=== PATIENT | female | born 2000 | race Hispanic/Latino ===

== ENCOUNTER 2022-08-15 07:22 | Inpatient (IN) | payer MEDICAID, OTHER, SELFPAY ==
[2022-08-15 07:36] VITALS: BMI 30.2
[2022-08-15] MEDS ORDERED: Bupivacaine 0.25% HCL 30 ML VIAL ONE (08:00)
[2022-08-15] MEDS ORDERED: hydrALAZINE 20 MG/ML VIAL SLOW IVP PRN ×2 (09:10→09:11)
[2022-08-15] MEDS ORDERED: Misoprostol 200 MCG TAB PR PRN (09:11)
[2022-08-15] MEDS ORDERED: Ondansetron PF 4 MG/2 ML Vial IVP PRN (09:11)
[2022-08-15] MEDS ORDERED: Butorphanol Tartrate 1 MG/ML VIAL SLOW IVP PRN (09:11)
[2022-08-15] MEDS ORDERED: Tranexamic Acid 1,000 MG/10 ML VIAL IVP PRN (09:11)
[2022-08-15] MEDS ORDERED: Promethazine HCl 25 MG/ML VIAL IM PRN (09:11)
[2022-08-15] MEDS ORDERED: Lidocaine 1% (PF) 30 ML VIAL SC PRN (09:11)
[2022-08-15] MEDS ORDERED: Ibuprofen 800 MG TAB PO PRN (09:11)
[2022-08-15] MEDS ORDERED: Carboprost 250 MCG/ML AMP IM PRN (09:11)
[2022-08-15] MEDS ORDERED: Diphenoxylate HCl/Atropine Tablet PO PRN (09:11)
[2022-08-15] MEDS ORDERED: NS w/ Oxytocin 30 units 500 ML IV SCH ×2 (09:15)
[2022-08-15] MEDS: Lactated Ringer's 1,000 ML IV SCH ×3 (10:15→17:12)
[2022-08-15 10:42] LABS: #Eosinphils 0.1 10x3/uL (0.0-0.5); #Monocytes 0.6 10x3/uL (0.0-1.1); #Neutrophils 5.8 10x3/uL (1.5-8.4); %Basophils 0.4 % (0.0-2.0); %Eosinophils 0.7 % (0.0-6.0); %Lymphocytes 20.5 % (18.0-47.0); %Monocytes 7.1 % (0.0-10.0); %Neutrophils 71.1 % (40.0-75.0); Hemoglobin 12.7 g/dL (12.0-15.5); Mean Corpuscular Hemoglobin 31.7 pg (27.0-33.0); Mean Platelet Volume 10.9 fl (7.4-10.4); Platelet Count 230 10x3/uL (150-450); RBC Distribution Width 13.3 % (11.5-14.5); Red Blood Cell (RBC) Count 4.01 10x6/uL (3.90-5.03); White Blood Cell (WBC) Count 8.2 10x3/uL (3.5-10.5)
[2022-08-15 11:09] LABS: ALT (SGPT) 12 U/L (8-55); AST (SGOT) 18 U/L (5-34); Albumin 3.3 g/dL (3.5-5.0); Alkaline Phosphatase 249 U/L (40-110); Anion Gap 14 mmol/L (10-20); BUN (Urea Nitrogen) 18 mg/dL (7.0-18.7); Bilirubin, Total 0.3 mg/dL (0.2-1.2); Calc. Creatinine Clearance 142 mL/min (70-130); Calcium 8.9 mg/dL (7.8-10.44); Carbon Dioxide 19 mmol/L (22-29); Chloride 107 mmol/L (98-107); Estimated GFR 126; Globulin 3.2 g/dL (2.4-3.5); Glucose 81 mg/dL (70-105); Protein, Total 6.5 g/dL (6.0-8.3); Sodium 136 mmol/L (136-145)
[2022-08-15 11:29] LABS: Syphilis Antibody Nonreactive (Nonreactive); Syphilis Antibody Index 0.03 S/CO (<1.00 Non-Reactive)
[2022-08-15 12:20] LABS: HBSAg Index 0.15 S/CO (0-0.99); Hep B Surf Ag - L&D Non-Reactive S/CO (NonReactive)
[2022-08-15] MEDS: Misoprostol 100 MCG TAB VAG SCH ×4 (13:05→18:28)
[2022-08-16] MEDS: fentaNYL 50 mcg/mL 1 mL Vial SLOW IVP PRN ×2 (00:40→02:37)
[2022-08-16] MEDS ORDERED: fentaNYL/Ropivacaine Epidural 100 ML ONE (05:18)
[2022-08-16] MEDS ORDERED: Lactated Ringer's 500 ML IV PRN (06:07)
[2022-08-16] MEDS ORDERED: Acetaminophen 325 MG TAB PO PRN (06:07)
[2022-08-16] MEDS ORDERED: Moisturizing Cream (Eucerin) 113 GM JAR TOP PRN (06:07)
[2022-08-16] MEDS ORDERED: diphenhydrAMINE 50 MG/ML VIAL IVP PRN (06:07)
[2022-08-16] MEDS ORDERED: Ondansetron PF 4 MG/2 ML Vial IVP PRN ×2 (06:07→10:20)
[2022-08-16] MEDS ORDERED: Naloxone HCl 0.4 mg/ml Vial IVP PRN ×2 (06:07)
[2022-08-16] MEDS ORDERED: Promethazine HCl 25 MG/ML VIAL IM PRN ×2 (06:07→10:20)
[2022-08-16] MEDS ORDERED: ePHEDrine Sulfate 50 MG/10 ML VIAL SLOW IVP PRN (06:07)
[2022-08-16] MEDS ORDERED: fentaNYL 2 mcg/Ropivacaine 0.2% Epidural 100 ML CADD EPIDURAL SCH (06:15)
[2022-08-16] MEDS ORDERED: Communication Order-Pharmacy FS SCH (06:15)
[2022-08-16] MEDS: NS w/ Oxytocin 30 units 500 ML IV SCH ×2 (08:28→09:42)
[2022-08-16] MEDS ORDERED: Boostrix 0.5 ML (Tdap) VIAL (>/=7 yrs of age) IM ONE (10:20)
[2022-08-16] MEDS ORDERED: HYDROcodone/Acetaminophen 5/325 mg Tablet PO PRN ×2 (10:20)
[2022-08-16] MEDS ORDERED: Bisacodyl 10 MG SUPP PR PRN (10:20)
[2022-08-16] MEDS ORDERED: diphenhydrAMINE 25 MG CAP PO PRN (10:20)
[2022-08-16] MEDS ORDERED: hydrALAZINE 20 MG/ML VIAL SLOW IVP PRN (10:20)
[2022-08-16] MEDS ORDERED: NS w/ Oxytocin 30 units 500 ML IV SCH (10:20)
[2022-08-16] MEDS ORDERED: Benzocaine-Menthol 82.5 ML CAN TOP PRN (10:20)
[2022-08-16] MEDS ORDERED: Milk Of Magnesia 30 ML UDCUP PO PRN (10:20)
[2022-08-16] MEDS ORDERED: cloNIDine 0.1 MG TAB PO PRN (10:20)
[2022-08-16] MEDS ORDERED: Lanolin Ointment 7 GM TUBE TOP PRN (10:20)
[2022-08-16] MEDS: Misoprostol 100 MCG TAB PO SCH (10:36)
[2022-08-16] MEDS ORDERED: Docusate 100 MG CAP PO SCH (11:00)
[2022-08-16] MEDS ORDERED: Prenatal Vitamin 1 TAB PO SCH (11:00)
[2022-08-16] MEDS: Ferrous Sulfate 325 MG TAB PO SCH (11:16)
[2022-08-16] MEDS ORDERED: NIFEdipine XL 30 MG TAB PO SCH (12:00)
[2022-08-16] MEDS: Ibuprofen 800 MG TAB PO SCH ×2 (13:39→22:10)
[2022-08-16] MEDS: Docusate 100 MG CAP PO SCH (22:10)
[2022-08-17] MEDS: Ibuprofen 800 MG TAB PO SCH ×3 (05:12→21:12)
[2022-08-17] MEDS: Misoprostol 100 MCG TAB PO SCH (05:54)
[2022-08-17] MEDS: Ferrous Sulfate 325 MG TAB PO SCH ×2 (07:10→10:09)
[2022-08-17] MEDS: Prenatal Vitamin 1 TAB PO SCH (08:09)
[2022-08-17] MEDS: Docusate 100 MG CAP PO SCH ×2 (08:09→21:11)
[2022-08-17] MEDS ORDERED: NIFEdipine XL 30 MG TAB PO SCH (09:00)
[2022-08-17 20:35] VITALS: TEMP 98.2
[2022-08-17] MEDS: Lactated Ringer's 1,000 ML IV SCH (21:15)
[2022-08-17] MEDS: Misoprostol 100 MCG TAB VAG SCH (21:15)
[2022-08-18] MEDS: Ibuprofen 800 MG TAB PO SCH ×2 (05:03→13:52)
[2022-08-18] MEDS: Ferrous Sulfate 325 MG TAB PO SCH (07:10)
[2022-08-18 08:06] VITALS: BP 130/70
[2022-08-18] MEDS: Prenatal Vitamin 1 TAB PO SCH (08:19)
[2022-08-18] MEDS: Docusate 100 MG CAP PO SCH (08:19)
== END 2022-08-18 16:10 | disposition home or self-care (01) | DRG 807 ==
LOC: CSHLD/OP 07:22 → CSHLD 09:11 → CSHPP 08-16 10:08
PROVIDERS: ADMIT Family Medicine; ATTEND Family Medicine
PROC: 10E0XZZ Delivery of Products of Conception, External Approach (ICD-10-PCS; principal; 2022-08-16)
PROC: 0UQMXZZ Repair Vulva, External Approach (ICD-10-PCS; 2022-08-16)
DX: O13.4 Gestational [pregnancy-induced] hypertension without significant proteinuria, complicating childbirth (principal); Z37.0 Single live birth; Z3A.39 39 weeks gestation of pregnancy; Z79.82 Long term (current) use of aspirin; Z79.899 Other long term (current) drug therapy; O70.0 First degree perineal laceration during delivery; O69.81X0 Labor and delivery complicated by cord around neck, without compression, not applicable or unspecified
CPT/HCPCS: 36415; 51702; 80053; 82570; 84156; 85025; 86780; 86850; 86900; 86901; 87340; 99285; J2590; J3010; J7120; S0020